=== PATIENT | female | born 1965 | race Caucasian/White ===

== ENCOUNTER 2021-04-27 14:46 | Emergency (ER) | payer MEDICAID ==
[~2021-04-27] VITALS: Ht 160 cm; Wt 59.1 kg
[~2021-04-27 14:46] MED LIST: ASPI-611 PO; CLON-527 PO; CYCL-1 PO; ESTR1TAB19 PO; GABA100C PO; HYDR-4353 PO; IBUP-1984 PO; LISI-642 PO; LISI-643 PO
[2021-04-27 15:18] VITALS: BP 97/62
== END 2021-04-27 15:54 | disposition home or self-care (01) ==
LOC: ER 14:46
DX: U07.1 COVID-19 (principal); J02.9 Acute pharyngitis, unspecified; R21 Rash and other nonspecific skin eruption; R05 Cough; I10 Essential (primary) hypertension; M19.90 Unspecified osteoarthritis, unspecified site; G89.29 Other chronic pain; F41.9 Anxiety disorder, unspecified; F15.90 Other stimulant use, unspecified, uncomplicated; Z90.710 Acquired absence of both cervix and uterus; Z72.89 Other problems related to lifestyle; Z88.1 Allergy status to other antibiotic agents; Z88.6 Allergy status to analgesic agent; Z79.82 Long term (current) use of aspirin; Z79.899 Other long term (current) drug therapy
CPT/HCPCS: 99281

== ENCOUNTER 2021-07-25 05:29 | Emergency (ER) | payer MEDICAID ==
[~2021-07-25] VITALS: Ht 160 cm; Wt 59.0 kg
[2021-07-25 05:33] VITALS: BP 142/86
[2021-07-25] MEDS ORDERED: normal saline 1000ML IV soln IVB ONE (05:40)
[2021-07-25] MEDS ORDERED: ketorolac trometh. 30mg/ml inj. IV ONE (05:40)
[2021-07-25] MEDS ORDERED: ondansetron/PF 4mg/2ml inj IV ONE (05:40)
[2021-07-29] MEDS ORDERED: SULF1TAB45 PO (16:41)
[2021-07-29] MEDS ORDERED: CEPH250T PO (16:41)
== END 2021-07-25 07:26 | disposition home or self-care (01) ==
LOC: ER 05:30
DX: F15.10 Other stimulant abuse, uncomplicated (principal); G89.29 Other chronic pain; M54.59 Other low back pain; D64.9 Anemia, unspecified; I10 Essential (primary) hypertension; F41.9 Anxiety disorder, unspecified
CPT/HCPCS: 71045; 93005; 99283; 99285

== ENCOUNTER → 2021-07-29 | Emergency (ER) | payer MEDICAID ==
[~2021-07-29] VITALS: Ht 157.5 cm; Wt 59.1 kg
[~2021-07-29] MED LIST changes: +CEPH250T PO; +SULF1TAB45 PO; +TETanus/Pertussis (Acell)/Diphther VAC/PF (Tdap-Adult) 0.5ml syringe IMVAC ONE; +amox tr/potassium clavulanate 875/125mg TAB PO ONE; +cephalexin 500mg capsule PO ONE
[2021-07-29 16:08] VITALS: BP 113/42
== END | disposition home or self-care (01) ==
LOC: ER 15:36
DX: S61.210A Laceration without foreign body of right index finger without damage to nail, initial encounter (principal); Z48.00 Encounter for change or removal of nonsurgical wound dressing; L08.9 Local infection of the skin and subcutaneous tissue, unspecified; X58.XXXA Exposure to other specified factors, initial encounter; Y93.89 Activity, other specified; Y92.89 Other specified places as the place of occurrence of the external cause; Y99.8 Other external cause status
CPT/HCPCS: 90715; 99283